=== PATIENT | female | born 1975 | race Caucasian/White ===

== ENCOUNTER → 2022-06-10 12:18 | Outpatient (CLI) | payer BC, SELFPAY ==
--- NOTE | ~2022-06-10 | MM_ITS ---
EXAMINATION: MM screening [facility] BI w slime HISTORY: Screening mammogram TECHNIQUE: Craniocaudal and mediolateral oblique 3-D tomosynthesis images were obtained and synthetic 2-D images were generated. CAD analysis was submitted and interpreted. COMPARISON: No prior mammogram is available for comparison at this institution. BREAST PARENCHYMAL COMPOSITION: There are scattered areas of fibroglandular density. FINDINGS: There is an approximately 5 mm possible mass in the upper mid left breast. There is a 4 mm circumscribed mass in the lateral subareolar area of the right breast (MLO tomosynthe sis 25/57). Bilateral diagnostic mammography is recommended, with ultrasound if required. IMPRESSION: 1. Possible bilateral breast masses 2. Bilateral diagnostic mammogram is recommended with ultrasound if required BI-RADS Category 0: Incomplete: Needs additional imaging evaluation. Reviewed, dictated and finalized at location A.
== END ==
PROVIDERS: PCP Obstetrics & Gynecology; Visit Provider Internal Medicine
DX: Z12.31 Encounter for screening mammogram for malignant neoplasm of breast (principal); R92.8 Other abnormal and inconclusive findings on diagnostic imaging of breast
CPT/HCPCS: 77063; 77067

== ENCOUNTER → 2022-07-04 07:36 | Outpatient (CLI) | payer BC, SELFPAY ==
--- NOTE | ~2022-07-04 | MMUS_ITS ---
EXAMINATION: MM diagnostic binta BI w slime, US breast BI limited HISTORY: Possible bilateral breast masses on screening mammogram TECHNIQUE: Additional 3-D tomosynthesis images of the breasts were performed and synthetic 2-D images were generated. CAD analysis was submitted and interpreted. High resolution limited bilateral breast ultrasound was performed. COMPARISON: 06/10/2022 FINDINGS: MAMMOGRAPHIC FINDINGS: Right breast: No definite persistent mass is identified with spot compression of the right breast. Left breast: There is a 10 mm oval, obscured, equal density mass with microlobulated margins in the m iddle third of the breast at the 12:00 location, 4 cm from the nipple. There is a 7 mm oval, obscured , equal density mass in the middle third of the lower inner breast at the 7:00 location, 7 cm from th e nipple ULTRASOUND: Right breast: There is a 5 mm cyst at the 12:00 location 1 cm from the nipple Left breast: There is a 10 mm x 5 mm oval, circumscribed, parallel, complex cystic and solid mass at the 12:00 location, 2 cm from the nipple with no posterior features or internal vascularity, probable clustered microcysts. There a 10 mm x 2 mm mass with similar sonographic features is seen at the 7:0 0 location, 4 cm from the nipple is an 8 mm x 3 mm oval, circumscribed, parallel, hypoechoic mass wit h no posterior features or internal vascularity at the 7:00 location, 4 cm from the nipple. There is a 5 mm x 3 mm mass with similar sonographic features at the 7:00 location, 6 cm from the nipple. IMPRESSION: 1. Probably benign left breast masses. 2. Recommend 6 month follow-up left diagnostic mammogram and ultrasound. BI-RADS category 3, probably benign findings. Reviewed, dictated and finalized at location A. IMPRESSION: 1. Probably benign left breast masses. 2. Recommend 6 month follow-up left diagnostic mammogram and ultrasound. BI-RADS category 3, probably benign findings.
== END ==
PROVIDERS: PCP Internal Medicine; Visit Provider Obstetrics & Gynecology
DX: R92.8 Other abnormal and inconclusive findings on diagnostic imaging of breast (principal)
CPT/HCPCS: 76642; 77062; 77066; G0279

== ENCOUNTER → 2023-01-23 08:12 | Outpatient (CLI) | payer BC, SELFPAY ==
--- NOTE | ~2023-01-23 | MMUS_ITS ---
EXAMINATION: MM diagnostic binta LT w slime, US breast LT limited HISTORY: Six-month follow-up for probably benign left breast masses TECHNIQUE: Additional 3-D tomosynthesis images of the left breast were performed and synthetic 2-D im ages were generated. CAD analysis was submitted and interpreted. High resolution limited left breast ultrasound was performed. COMPARISON: 07/04/2022, 06/10/2022 BREAST PARENCHYMAL COMPOSITION: There are scattered areas of fibroglandular density. FINDINGS: MAMMOGRAPHIC FINDINGS: There is a stable 10 mm oval, obscured, equal density mass with microlobulated margins in the middle third of the breast at the 12:00 location, 4 cm from the nipple. The previously described mass at the 7:00 location is not definitely identified. There has been no suspicious interval change. ULTRASOUND: There is a stable 9 mm x 5 mm oval, circumscribed, parallel, complex cystic and solid mass at the 12: 00 location, 5 cm from the nipple (previously labeled 2 cm from the nipple) with no posterior feature s or internal vascularity. A 4 mm x 2 mm mass with similar sonographic features at the 7:00 location, 4 cm from the nipple has decreased in size. There is a 3 mm oval, circumscribed, parallel, hypoechoi c mass with no posterior features or internal vascularity at the 12:00 location, 2 cm from the nipple . IMPRESSION: 1. Probably benign left breast masses. 2. Recommend 6 month follow-up bilateral diagnostic mammogram and left breast ultrasound. BI-RADS category 3, probably benign findings. Reviewed, dictated and finalized at location A. OUT PRESS OPERATOR IMPRESSION: 1. Probably benign left breast masses. 2. Recommend 6 month follow-up bilateral diagnostic mammogram and left breast u ltrasound. BI-RADS category 3, probably benign findings.
== END ==
PROVIDERS: PCP Internal Medicine; Visit Provider Obstetrics & Gynecology
DX: R92.8 Other abnormal and inconclusive findings on diagnostic imaging of breast (principal)
CPT/HCPCS: 76642; 77061; 77065; G0279

== ENCOUNTER 2023-04-30 14:27 | Outpatient (CLI) | payer BC, SELFPAY ==
[2023-04-30 14:53] LABS: Basophils Absolute Auto 0.1 K/mm3 (0.0-0.1); Basophils Percent Auto 0.6 % (0.2-1.2); Eosinophils Absolute Auto 0.4 K/mm3 (0-0.3); Eosinophils Percent Auto 4.5 % (0-4.4); Hematocrit 34.4 % (37.0-47.0); Hemoglobin 10.1 g/dL (12.0-15.0); Immature Granulocyte Absolute 0.04 K/mm3 (0.00-0.031); Immature Granulocyte Percent A 0.4 % (0-0.5); Lymphocytes Absolute Auto 1.39 K/mm3 (0.9-3.2); Lymphocytes Percent Auto 14.8 % (18.3-44.2); Mean Corpuscular HGB Conc 29.4 g/dl (32-36); Mean Corpuscular Hemoglobin 19.9 pg (26-34); Mean Corpuscular Volume 67.9 fl (80-100); Monocytes Absolute Auto 0.7 K/mm3 (0.1-0.6); Monocytes Percent Auto 7.2 % (2.6-8.5); Neutrophils Absolute Auto 6.8 K/mm3 (1.3-6.7); Neutrophils Percent Auto 72.5 % (45.5-73.1); Platelet Count Result 337 k/mm3 (150-375); Red Blood Count 5.07 M/mm3 (4.2-5.4); Red Cell Distribution Width 30.2 % (11.5-14.5); White Blood Count 9.4 K/mm3 (4.5-10.0)
[2023-04-30 15:01] LABS: Anisocytosis 1+; Microcytosis 1+ (NORMAL); Ovalocytes 1+; Platelet Estimate Adequate (Adequate); Schistocytes None Seen; Target Cells 1+
[2023-04-30 15:02] LABS: Poikilocytosis 2+
[2023-04-30 16:32] LABS: Iron 34 ug/dL (37-170)
[2023-04-30 16:42] LABS: Percent Iron Saturation 8 % (20-50)
[2023-04-30 17:08] LABS: Ferritin 9.36 ng/mL (6.24-137)
[2023-04-30 17:35] LABS: Alanine Aminotransferase 16 U/L (6-35); Albumin Level 4.9 g/dL (3.5-5.1); Alkaline Phosphatase 47 U/L (38-126); Anion Gap 9 mmol/L (8-16); Aspartate Amino Transferase 23 U/L (14-36); Bilirubin,Total 0.5 mg/dL (0.2-1.3); Blood Urea Nitrogen 8 mg/dL (7-17); Calcium 9.7 mg/dL (8.4-10.2); Carbon Dioxide 24 mmol/L (22-30); Chloride 104 mmol/L (98-107); Estimated Glomerular Filt Rate > 60; Glucose 87 mg/dL (65-110); Lactate Dehydrogenase 143 U/L (120-246); Potassium 3.9 mmol/L (3.4-5.0); Sodium 137 mmol/L (137-145)
[2023-04-30 18:50] LABS: Folic Acid > 20.0 ng/mL (2.76->20)
[2023-05-03 09:24] LABS: Methylmalonic Acid 81 nmol/L (87-318)
[2023-05-06 12:12] LABS: Soluble Transferrin Receptor 3.94 mg/L (0.76-1.76)
== END 2023-04-30 14:28 | disposition home or self-care (01) ==
LOC: ANHLAB 14:35
PROVIDERS: Nurse Practitioner Family; PCP Internal Medicine; Visit Provider Internal Medicine Hematology & Oncology
DX: D50.9 Iron deficiency anemia, unspecified (principal)
CPT/HCPCS: 36415; 80053; 82607; 82728; 82746; 83540; 83550; 83615; 83921; 84238; 85025

== ENCOUNTER 2023-08-05 07:53 | Outpatient (CLI) | payer BC, SELFPAY ==
--- NOTE | ~2023-08-05 | MMUS_ITS ---
EXAMINATION: MM diagnostic binta BI w slime, US breast BI complete HISTORY: Follow-up bilateral breast masses TECHNIQUE: Additional 3-D tomosynthesis images of the breasts were performed and synthetic 2-D images were generated. CAD analysis was submitted and interpreted. High resolution bilateral complete breas t ultrasound was performed. COMPARISON: Comparison to multiple prior studies sequentially, with oldest reviewed study dated 06/10. BREAST PARENCHYMAL COMPOSITION: Dense: The breasts are heterogeneously dense, which may obscure small masses FINDINGS: MAMMOGRAPHIC FINDINGS: There are no suspicious masses, calcifications or architectural distortion in either breast to sugges t malignancy. ULTRASOUND: Complete bilateral US of all 4 quadrants of the breasts and retroareolar region was reviewed. Right breast: At 9:00, 5 cm from the nipple, there is a cluster microcysts measuring 9 mm. At 10:00, 3 cm from the nipple, there is a 7 mm cyst. At 10-11:00, 4.5 cm from the nipple, there is a 7 mm cyst . There is also a 5 mm cyst at this location. Left breast: At 1:00, 4 cm from the nipple, there is a 4 mm cyst. There is an adjacent 7 mm cyst. At 5:00, 2.5 cm from the nipple there is a benign intramammary lymph node measuring 7 mm. At 11:00, 2 cm from the nipple there is a 6 mm cyst. IMPRESSION: 1. No evidence for malignancy in either breast. Benign findings. 2. Routine yearly screening mammogram and regular clinical breast examination are recommended. BI-RADS Category 2: Benign finding(s). Reviewed, dictated and finalized at location B. IMPRESSION: 1. No evidence for malignancy in either breast. Benign findings. 2. Routine yearly screening mammogram and regular clinical breast examination a re recommended. BI-RADS Category 2: Benign finding(s).
== END 2023-08-05 07:54 ==
PROVIDERS: PCP Internal Medicine; Visit Provider Obstetrics & Gynecology
DX: R92.8 Other abnormal and inconclusive findings on diagnostic imaging of breast (principal)
CPT/HCPCS: 76641; 77062; 77066; G0279

== ENCOUNTER 2023-12-19 07:56 | Outpatient (CLI) | payer BC, SELFPAY ==
--- NOTE | 2023-12-19 08:00 | ECG_ITS ---
Test Date: 2023-12-19 08:26:01 Measurements Intervals [place] Rate: 81 P: 59 SD: 130 QRS: 60 QRSD: 92 T: 23 QT: 355 QTc: 414 Interpretive Statements SINUS RHYTHM WITH SINUS ARRHYTHMIA MINIMAL Q WAVES- INFERIOR LEADS NONSPECIFIC ST-T WAVE ABNORMALITY- ANT/INF LEADS BASELINE ARTIFACT- I, II, AVR BORDERLINE ECG No previous ECG available for comparison Electronically Signed On 12-19-2023 08:32:25 CDT by Charles Posada D.O.
== END 2023-12-19 07:57 | disposition home or self-care (01) ==
LOC: ANHSURGERY 08:05
PROVIDERS: PCP Internal Medicine; Visit Provider Obstetrics & Gynecology
DX: N92.0 Excessive and frequent menstruation with regular cycle (principal); E78.5 Hyperlipidemia, unspecified; R94.31 Abnormal electrocardiogram [ECG] [EKG]
CPT/HCPCS: 36415; 86850; 86900; 86901; 93005

== ENCOUNTER 2023-12-25 00:33 | Day surgery (SDC) | payer BC, SELFPAY ==
[2023-12-16 12:46] VITALS: BMI 22.1
--- NOTE | 2023-12-16 12:57 | PC.NURSE ---
Report to the Outpatient Waiting Room, entrance under the green pavilion located off [facility], at time _1000_ on date _[id number]_. Planned Procedure Time: _1200_.? Time changes happen often and if your time is changed the preop area will call you the afternoon before. - You and your visitor will be asked to self-screen and do not enter if you have any COVID symptoms. Please call surgeon if you need to reschedule. - A mask is optional within the hospital at this time. Patients may have clear liquids (water, carbonated beverages, clear teas, apple juice) until 3 hours prior to surgery with a maximum of 20 ounces. - No food from midnight until time of surgery and no smoking Take only the following medications with a SIP of water on the morning of surgery: __Escitalopram DO NOT STOP ANY OF YOUR OTHER PRESCRIPTION MEDICATIONS PRIOR TO SURGERY EXCEPT THE FOLLOWING Medications to discontinue per physician __Vitamins Date to take last pojo___[id number]__ Please no make-up, nail faroese, hairspray, perfume, deodorant, or body powder the day of surgery.? No jewelry (including any body piercings) or valuables the day of surgery, leave them at home.? Please take a shower or bath the night before, or the morning of, surgery with an antibacterial soap.? Wear comfortable, loose fitting clothing.? - Jewelry must be removed prior to entering the operating room.? Rings and piercings that are not removed may be cut off. - The hospital will not accept responsibility for valuables.? - Please leave all valuables, including medications, at home the day of surgery. If you are going home after surgery, a licensed wagon driver salesperson must drive you home.? - NO public transportation without another adult if you receive anesthesia. - We recommend that an adult stay with you for 24 hours following discharge. - We also recommend that you do not drive, make important decision, drink alcoholic beverages, or take any drugs that were not prescribed by your health care provider for at least 24 hours after your discharge time. Follow any additional instructions given to you from your surgeon. Telephone instructions given to _Emma__and asked if any additional questions and then verbalized understanding. Patient advised to call surgeon office or pre surgery nurse liaison [phone] if any additional questions.
--- NOTE | 2023-12-23 07:34 | P.HP_ITS ---
H&P: HPI History of Present Illness Date/Time: 12/23/23 07:34 Chief Complaint: excessive vaginal bleeding and anemia Narrative: this is a 48-year-old 3 para 3 admitted for robotic total vaginal hysterectomy and bilateral salpingo-oophorectomy. This patient is at excessive heavy bleeding resulting in anemia. Will undergo hysterectomy bilateral salpingo-oophorectomy. Long discussion was undertaken conserving ovaries and changes that occur that she is definitive that she would like the ovaries removed. Risks and including not exclusive, aspiration bleeding, transfusion, perforation injury bowel, bladder, ureters, or other internal organs with need for open laparotomy she received the handout hysterectomy as well as the Arian she had all questions answered she asked to proceed PMFSH Social History Social History Smoking packs per day: 1 Smoking cigarettes per day: 20.0 Years smoked: 10 Smoking pack-years: 10.00 Smoking status: Former smoker Tobacco type: cigarettes Second hand tobacco smoke exposure: Yes Smoking end date: 12/16/03 Additional smoking assessment comments: 2020 smoked again for 3 months. Alcohol intake: current Living arrangements: with family Spiritual care concerns: No Meds Home Medications and Allergies Home Medications Medication Instructions Recorded Confirmed Type atomoxetine 100 mg capsule 100 mg PO DAILY 12/16/23 12/16/23 History atorvastatin 10 mg tablet 10 mg PO HS 12/16/23 12/16/23 History bisacodyl 5 mg tablet,delayed 5 mg PO HS 12/16/23 12/16/23 History release (Dulcolax (bisacodyl)) escitalopram oxalate 20 mg tablet 20 mg PO DAILY 12/16/23 12/16/23 History ferrous sulfate 325 mg (65 mg 325 mg PO BID 12/16/23 12/16/23 History iron) tablet (FeroSul) gabapentin 300 mg capsule 300 mg PO TID 12/16/23 12/16/23 History odhsxdwt-wndqxkn-qgft-lutein tablet 1 tablet PO DAILY 12/16/23 12/16/23 History multivitamin with minerals 1 tablet PO DAILY 12/16/23 12/16/23 History ubrogepant 50 mg tablet (Ubrelvy) 50 mg PO DAILY PRN migrane 12/16/23 12/16/23 History Allergies Allergy/AdvReac Type Severity Reaction Status Date / Time adhesive tape Allergy Mild Rash Verified 12/16/23 13:08 bee venom protein (honey bee) AdvReac Mild Anxiety Verified 12/16/23 13:08 [bees] Exam Const: General: cooperative, healthy appearing and comfortable Nutritional Appearance: average body habitus Orientation/consciousness: oriented to person, oriented to place and oriented to time HENMT: Head: normal to inspection Resp: Effort & Inspection: normal respiratory effort Cardio: Rate: regular rate Rhythm: regular rhythm Heart sounds: S1 normal heart sound present and S2 normal heart sound present GI: Inspection: normal to inspection : External Female Exam: normal external appearance Speculum Exam - Vagina: normal appearance of the vagina and vaginal bleeding Speculum Exam - Cervix: normal appearance of the cervix Bimanual exam- vagina & uterus: enlarged Bimanual Exam- Adnexa, other: normal adnexae Assessment and Plan Assessment and plan (1) Excessive bleeding: Code(s): R58 - Hemorrhage, not elsewhere classified Status: Acute (2) Iron deficiency anemia: Code(s): D50.9 - Iron deficiency anemia, unspecified Status: Acute Assessment and Plan: proceed with robotic total vaginal hysterectomy and bilateral salpingo- oophorectomy
[2023-12-25] VITALS (9 sets, daily range): BP systolic 96–124; BP diastolic 54–89; PULSE 55–82; RESP 12–20; TEMP 36.3–37.5; O2SAT 97–100
--- NOTE | 2023-12-25 05:35 | WPDHPUPDATE1 ---
History and Physical Update Update Date/Time: 12/25/23 05:35 History and Physical has been reviewed, including an updated exam of the patient. There are NO changes in the patient's condition. Risks, benefits, and alternatives have been discussed and questions answered. Patient agrees to proceed with procedure.
--- NOTE | 2023-12-25 10:32 | P.PNAN_ITS ---
Anes - Initial Pre Proc Eval Procedure: Operation Date: 12/25/23 12:00 Proposed Procedures p Robotic Assisted Total Vaginal Hysterectomy, Bilateral Salpingo Oophorectomy - Ernesto Pizarro MD Date/Time: 12/25/23 10:32 Surgeon: Ernesto Pizarro MD Pre Op Diagnosis: anemia,pelvic pain,excessive bleeding Patient Data Age: 48 Gender: F Height: 1.63 m Weight: 58.6 kg Allergies Allergy/AdvReac Type Severity Reaction Status Date / Time adhesive tape Allergy Mild Rash Verified 12/16/23 13:08 bee venom protein (honey bee) AdvReac Mild Anxiety Verified 12/16/23 13:08 [bees] Home Medications Medication Instructions Recorded Confirmed Type atomoxetine 100 mg capsule 100 mg PO DAILY 12/16/23 12/16/23 History atorvastatin 10 mg tablet 10 mg PO HS 12/16/23 12/16/23 History bisacodyl 5 mg tablet,delayed 5 mg PO HS 12/16/23 12/16/23 History release (Dulcolax (bisacodyl)) escitalopram oxalate 20 mg tablet 20 mg PO DAILY 12/16/23 12/16/23 History ferrous sulfate 325 mg (65 mg 325 mg PO BID 12/16/23 12/16/23 History iron) tablet (FeroSul) gabapentin 300 mg capsule 300 mg PO TID 12/16/23 12/16/23 History eonyeegs-fgpgsej-yrdt-lutein tablet 1 tablet PO DAILY 12/16/23 12/16/23 History multivitamin with minerals 1 tablet PO DAILY 12/16/23 12/16/23 History ubrogepant 50 mg tablet (Ubrelvy) 50 mg PO DAILY PRN migrane 12/16/23 12/16/23 History hydrocodone 5 mg-acetaminophen 325 1 tablet PO Q4H PRN pain #20 tabs 12/25/23 Rx mg tablet Patient hx anesthesia problems: none Family hx anesthesia problems: none Results Review: All pre-operative results and documents have been reviewed as part of the pre- operative evaluation. [facility] Past Medical History Medical History (Updated 12/25/23 @ 10:33 by Ernesto Griffin MD) Anxiety Hyperlipidemia Surgical History Surgical History (Updated 12/25/23 @ 10:33 by Ernesto Griffin MD) History of tubal ligation Social History Social History Smoking packs per day: 1 Smoking cigarettes per day: 20.0 Years smoked: 10 Smoking pack-years: 10.00 Smoking status: Former smoker Tobacco type: cigarettes Second hand tobacco smoke exposure: Yes Smoking end date: 12/16/03 Additional smoking assessment comments: 2020 smoked again for 3 months. Alcohol intake: current Living arrangements: with family Spiritual care concerns: No Anes - Eval Final PreProcedure Day of Procedure 12/25/23 10:32 Patient weight: normal Heart: regular rate and rhythm Lungs: clear to auscultation Airway: Mallampati scale class II Neurological: alert and oriented Last oral intake: >/= 8 hours ASA classification: II Emergent: no Anesthetic plan: proceed Anesthesia type and monitoring: general ETT and standard monitoring Results Review: All pre-operative results and documents have been reviewed as part of the pre- operative evaluation. Informed Consent: The patient's anesthetic plan and its attendant risks and benefits were discussed with the patient/family/POA. Questions were solicited and answers provided to the satisfaction of the patient/family/POA.
[2023-12-25] MEDS: ACETAMINOPHEN 500 MG TABLET 1000 MG PO ×3 (11:00→23:28)
[2023-12-25] MEDS: KETOROLAC 15 MG/ML VIAL (*BKC) IV PUSH (11:00)
[2023-12-25] MEDS: LACTATED RINGERS 1,000 ML 30 ML IV CONT ×2 (11:00→13:26)
[2023-12-25] MEDS: ceFAZolin 2 GM/D5W 50 ML 2 GM/50 ML BAG IVPB (11:56)
--- NOTE | 2023-12-25 12:00 | SUR.PREOP ---
Addendum entered by Thu Perrin RN 12/25/23 14:55: below documentation done in error. wrong patient Original Note: PT STATES HAS HAD CRUTCH TRAINING AT PAT VISIT BUT PLANS ON USING KNEE SCOOTER POST OP
[2023-12-25 12:04] LABS: BEDSIDEPREGUCG Negative (Negative)
--- NOTE | 2023-12-25 13:04 | P.OP_ITS ---
Procedure Note - Detailed Date of Procedure 12/25/23 Pre-op Diagnosis anemia,pelvic pain,excessive bleeding Post-op Diagnosis Same Procedure Performed Robotic total vaginal hysterectomy bilateral salpingo-oophorectomy Surgeon Ernesto Pizarro MD Anesthesia General Indications 48-year-old female with excessive heavy bleeding refractory therapy Findings fibroid uterus right fallopian tube surgically absent. Small cyst on the right Description of Procedure the patient was prepped draped normal sterile fashion placed dorsal lithotomy position. Under excellent general trach anesthesia weighted speculum placed in posterior fornix. Anterior lip of cervix grasped with single-tooth today uterus sounded to 10cm. Serial dilatation fragmented dilators performed followed by passage of 10. ANUP and the 3. 0.5 cold cup. The weighted speculum single- tooth bladder then drained of 16 Romansh catheter. The gloves were changed. A supraumbilical incision made. The Veress needle passed in the abdomen the a bdomen filled with CO2 gas. 15mmHg were filled and the 8mm trocar advanced in the abdomen. Downside visualized no injury seen. Patient placed in 18? Trendelenburg and right left lateral quadrant incisions made. 8Mm trocars advanced under direct visualization assuring no injury. A right upper quadrant incision made the 8mm trocar advanced under direct visualization assuring no injury. The robot was docked. Attention was turned to the trauma counsellor. The left round ligament grasped, burned, cut. Anteriorly a bladder flap was formed by sharply dissecting the peritoneum and reflecting the bladder caudally away from the cervix to the opposite round ligament which was clamped, burned, cut. Next the left infundibulopelvic structure was skeletonized serially clamping burning cutting and bringing this to level of previously cut round ligament. The tube was absent on the right except for small portion that was left on the tube the infundibulopelvic structure was skeletonized clamping burning cutting and bringing this to the level of the previously cut round ligament. The cardinal broad ligaments on the left were then serially skeletonized clamping burning cutting and hugging the cervix uterus until the uterine vessels could be seen on the left these were individually clamped, burned, cut. In similar fashion the cardinal broad ligaments on the right were serially skeletonized clamping burning cutting and bringing this down to the uterine vessels. These were then individually clamped, burned, cut. Excellent blanching was seen. A colpotomy incision was made in the cervix uterus ovaries tubes removed through the vagina. Vagina then closed continuous running 0V lock from lateral edge to lateral edge back to the midline. Irrigation undertaken to clear blood loss estimated [id number]. Robot was undocked the gas removed from the abdomen the incisions were then closed with 4-0 Monocryl and glue. The patient was awakened went recovery in satisfactory condition. All sponge, needle, instrument counts were correct. There were no immediate complications Estimated Blood Loss 25 Drains No Packing No Pathology Yes Complications No immediate complications Condition Stable Disposition PACU
--- NOTE | 2023-12-25 13:10 | P.DS_ITS ---
DS: Admitting Diagnosis Discharge Date 12/26/2023 Admitting Diagnosis excessive bleeding and anemia DS: Discharge Diagnosis Discharge Diagnosis (1) Excessive bleeding: Code(s): R58 - Hemorrhage, not elsewhere classified Status: Acute (2) Iron deficiency anemia: Code(s): D50.9 - Iron deficiency anemia, unspecified Status: Acute DS: Summary Hospital Course Reason for hospitalization: patient was admitted on 12/25/2023 for robotic total vaginectomy bilateral salpingo-oophorectomy Hospital Course: patient's hospital course unremarkable. She remained afebrile. She was up, voiding without difficulty, eating regular diet, ambulating, and generally without complaints. Time Spent with Patient Time attestation: Total time spent providing and/or coordinating discharge services: Exam Const: General: cooperative, healthy appearing and comfortable Orientation/consciousness: oriented to person, oriented to place and oriented to time HENMT: Head: normal to inspection Resp: Effort & Inspection: normal respiratory effort Cardio: Rate: regular rate Rhythm: regular rhythm Heart sounds: S1 emmie l heart sound present and S2 normal heart sound present GI: Inspection: normal to inspection and incision ( Wounds are clean dry and intact) DS: Data Data Completed and Pending Pending studies at discharge: Pending at discharge 12/25/23 12:38 Surgical [PTH] Routine Labs on day of discharge: Labs from last 24 hours 12/25/23 11:00 POC Urine HCG, Qual Negative Discharge Plan Discharge Patient Disposition: Home, Self-Care Stand Alone Forms: General Discharge Instructions Follow-up/Referrals: Ernesto Padron MD [Physician] - Discharge Medications: New hydrocodone-acetaminophen 5-325 mg tablet 1 tablet PO Q4H PRN (Reason: pain) Qty: 20 0RF No Action atorvastatin 10 mg tablet 10 mg PO HS ferrous sulfate [FeroSul] 325 mg (65 mg iron) tablet 325 mg PO BID gabapentin 300 mg capsule 300 mg PO TID Rx Instructions: says takes 600mg at hs only bisacodyl [Dulcolax (bisacodyl)] 5 mg Tablet,Delayed Release (Dr/Ec) 5 mg PO HS Skin - Special Formula Vit/Min Tablet 1 tablet PO DAILY Centrum Silver Ultra Women's Tablet 1 tablet PO DAILY escitalopram oxalate 20 mg tablet 20 mg PO DAILY atomoxetine 100 mg capsule 100 mg PO DAILY Ubrelvy 50 mg tablet 50 mg PO DAILY PRN (Reason: migrane)
[2023-12-25] MEDS: HYDROmorphone HCL INJ (*CRX) 1 MG/ML SYR 0.25 MG IV PUSH ×4 (13:35→14:04)
--- NOTE | 2023-12-25 14:45 | OBPPTRN ---
Patient transferred to post room #289 via bed. Support person present. Oriented to unit, room, information board, rooming in, admission packet and security measures. Patient verbalizes understanding.
[2023-12-25] MEDS: oxyCODONE HCL (*CRX) 5 MG TAB IR 10 MG PO ×2 (15:04→19:51)
[2023-12-25] MEDS: DEXTROSE 5%/LACTATED RINGERS 1,000 ML 125 ML IV CONT (15:06)
[2023-12-25] MEDS: KETOROLAC 30 MG/ML VIAL (*BKC) IV PUSH ×2 (17:14→23:29)
[2023-12-25] MEDS: DOCUSATE SODIUM 100 MG CAPSULE PO (17:14)
[2023-12-25] MEDS: SIMETHICONE 80 MG TAB.CHEW PO (17:14)
[2023-12-25] MEDS: ESTRADIOL 7 DAY 0.05 MG PATCH TRANSDERM (17:15)
[2023-12-25] MEDS: diphenhydrAMINE HCl INJ 50 MG/ML VIAL 25 MG IV PUSH (17:55)
--- NOTE | 2023-12-25 19:21 | PC.NURSE ---
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 PT a recipient of such instructions and no barriers to learning identified at this time. Instructions per one to one discussion, and demonstrations. PT verbalized understanding of such care.
[2023-12-26] MEDS: oxyCODONE HCL (*CRX) 5 MG TAB IR PO (04:23)
[2023-12-26] MEDS: KETOROLAC 30 MG/ML VIAL (*BKC) IV PUSH (05:48)
[2023-12-26] MEDS: ACETAMINOPHEN 500 MG TABLET 1000 MG PO (05:48)
--- NOTE | 2023-12-26 07:01 | PM.GYNPNOP ---
DRAFTER ELECTROMECHANICAL - A/P Postoperative Procedures: Procedures Operation Date: 12/25/23 12:00 Actual Procedure Side Surgeon p Robotic Assisted Total Vaginal Hysterectomy, Bilateral Salpingo Oophorectomy Bilateral Ernesto Pizarro MD Postoperative day: 1 Postoperative status: doing well Postoperative plan: routine post-op care, see orders, ambulate, advance diet, voiding trials and discharge Time Spent With Patient Time: Total time spent is greater than 50% in coordination of care (as documented) at patient's floor/unit and/or counseling patient: Time with patient: less than 15 minutes DRAFTER ELECTROMECHANICAL- PN:Subj Post-Op Subjective Date/time seen: 12/26/23 07:01 Subjective: patient reports feeling better, patient has no complaints, patient desires discharge, pain is well controlled and patient is tolerating oral intake Exam Const: General: cooperative, healthy appearing and comfortable HENMT: Head: normal to inspection Resp: Effort & Inspection: normal respiratory effort Cardio: Rate: regular rate Rhythm: regular rhythm Heart sounds: S1 normal heart sound present and S2 normal heart sound present GI: Inspection: normal to inspection and incision (cdi) DRAFTER ELECTROMECHANICAL - PN: Obj Data Vital Signs Vital Signs: Vital Signs - 24 hr 12/25/23 11:00 12/25/23 13:26 12/25/23 13:40 Temperature 97.4 F L 97.8 F Pulse Rate 67 82 61 Respiratory Rate 18 14 15 Blood Pressure 109/73 124/75 124/82 Pulse Oximetry 100 100 100 Oxygen Delivery Room Air Simple Face Mask Simple Face Mask Oxygen Flow Rate 8 8 12/25/23 13:55 12/25/23 14:10 12/25/23 14:25 Temperature Pulse Rate 59 L 57 L 55 L Respiratory Rate 14 14 12 Blood Pressure 109/89 101/54 L 97/69 L Pulse Oximetry 100 98 99 Oxygen Delivery Room Air Room Air Room Air Oxygen Flow Rate 12/25/23 14:35 12/25/23 14:55 12/25/23 20:00 Temperature 97.8 F 98 F 99.5 F Pulse Rate 57 L 57 L 70 Respiratory Rate 12 14 20 Blood Pressure 105/58 L 97/61 L 96/62 L Pulse Oximetry 98 100 97 Oxygen Delivery Room Air Oxygen Flow Rate 12/25/23 20:00 Temperature Pulse Rate 70 Respiratory Rate 18 Blood Pressure Pulse Oximetry 97 Oxygen Delivery Room Air Oxygen Flow Rate Intake/Output Intake/Output: Intake & Output 12/23/23 12/24/23 12/25/23 12/26/23 23:59 23:59 23:59 23:59 Intake Total 1890 Output Total 2350 Balance -460 Meds/Results Medications: Active Medications Generic Name Dose Route Start Last Admin Trade Name Freq PRN Reason Stop Dose Admin Acetaminophen 1,000 mg 12/25/23 18:00 12/26/23 05:48 Acetaminophen 500 Mg Tablet PO 1,000 mg Q6HR CARLOS Administration Diphenhydramine HCl 25 mg 12/25/23 17:42 12/25/23 17:55 Diphenhydramine Hcl Inj 50 Mg/Ml Vial IV PUSH 25 mg Q4H PRN Administration Itching Docusate Sodium 100 mg 12/25/23 17:00 12/25/23 17:14 Docusate Sodium 100 Mg Capsule PO 100 mg BID CARLOS Administration Enoxaparin Sodium 40 mg 12/26/23 09:00 Enoxaparin 40 Mg/0.4 Ml Syringe SUB-Q DAILY CARLOS Estradiol 0.05 mg 12/25/23 15:00 12/25/23 17:15 Estradiol 7 Day 0.05 Mg Patch TRANSDERM 0.05 mg Q7D CARLOS Administration Dextrose/Lactated Ringer's 1,000 mls @ 125 mls/hr 12/25/23 14:36 12/25/23 22:00 Dextrose 5%/Lactated Ringers IV CONT Not Given .Q8H CARLOS Ibuprofen 600 mg 12/26/23 12:00 Ibuprofen 600 Mg Tablet PO Q6HR CARLOS Naloxone HCl 0.1 mg 12/25/23 14:36 Naloxone Hcl 0.4 Mg/Ml Vial IV PUSH Q2M PRN Respiratory rate less than 10 Ondansetron HCl 4 mg 12/25/23 14:36 Ondansetron Inj 4 Mg/2 Ml Vial IV PUSH Q6H PRN Nausea And Vomiting Oxycodone HCl 5 mg 12/25/23 14:36 12/26/23 04:23 Oxycodone Hcl (*Crx) 5 Mg Tab Ir PO 5 mg Q4H PRN Administration Pain Rated 4-6 Oxycodone HCl 10 mg 12/25/23 14:36 12/25/23 19:51 Oxycodone Hcl (*Crx) 5 Mg Tab Ir PO 10 mg Q6H PRN Administration Pain Rated 7-10 Simethicone 80 mg 12/25/23 17:00 12/25/23 17:14 Simethicone 80 Mg Tab.Chew PO 80 mg TIDWM CARLOS Administration Labs Labs: Laboratory Results - last 24 hr 12/25/23 11:00 POC Urine HCG, Qual Negative
[2023-12-26 07:40] VITALS: BP 95/56; PULSE 87; RESP 16; TEMP 36.9; O2SAT 99
--- NOTE | 2023-12-26 08:04 | WPDANESPN ---
Anes - Prog Note Post-Op Date/Time: 12/26/23 08:04 Cardiovascular status: normal Respiratory status: normal Airway patency: baseline Mental status: baseline Post-Op hydration status: normal Vital Signs: Last Vital Signs Temp 37.5 C 12/25/23 20:00 Pulse 70 12/25/23 20:00 Resp 18 12/25/23 20:00 BP 96/62 L 12/25/23 20:00 Pulse Ox 97 12/25/23 20:00 O2 Del Method Room Air 12/25/23 20:00 O2 Flow Rate 8 12/25/23 13:40 Pain Score (VAS): 6 I/O: Intake & Output 12/25/23 12/26/23 12/26/23 23:59 07:59 15:59 Intake Total 1540 Output Total 1900 Balance -360 12/25/23 11:00 POC Urine HCG, Qual Negative Post-procedural complaints: none Patient Feedback: Patient satisfied with anesthetic care.
[2023-12-26] MEDS: SIMETHICONE 80 MG TAB.CHEW PO (08:24)
[2023-12-26] MEDS: oxyCODONE HCL (*CRX) 5 MG TAB IR 10 MG PO (08:24)
[2023-12-26] MEDS: DOCUSATE SODIUM 100 MG CAPSULE PO (08:24)
[2023-12-26] MEDS: ENOXAPARIN 40 MG/0.4 ML SYRINGE SUB-Q (08:25)
== END 2023-12-26 09:20 | disposition home or self-care (01) ==
LOC: ANHSURGERY 09:45 → ANHOB2 14:39
PROVIDERS: PCP Internal Medicine; Visit Provider Obstetrics & Gynecology
PROC: (CPT 58552; principal; 2023-12-25 12:00)
DX: D50.9 Iron deficiency anemia, unspecified (principal); R10.2 Pelvic and perineal pain; N93.9 Abnormal uterine and vaginal bleeding, unspecified; N88.8 Other specified noninflammatory disorders of cervix uteri; N80.03 Adenomyosis of the uterus; D27.0 Benign neoplasm of right ovary; D25.0 Submucous leiomyoma of uterus; D25.1 Intramural leiomyoma of uterus; D25.2 Subserosal leiomyoma of uterus; F41.9 Anxiety disorder, unspecified; E78.5 Hyperlipidemia, unspecified; Z87.891 Personal history of nicotine dependence
CPT/HCPCS: 58552; S2900; 88305; 88307; 99199; A9270; J0690; J1100; J1171; J1200; J1650; J1885; J2003; J2250; J2405; J2704; J3010; J7030; J7120; J7121

== ENCOUNTER 2024-04-22 17:57 | Emergency (ER) | payer BC, SELFPAY ==
--- NOTE | ~2024-04-22 | CT_ITS ---
EXAMINATION: CT cervical spine wo con DATE: 04/23/2024 01:04 INDICATION: Left sided neck pain radiating to the arm. TECHNIQUE: Computed tomography (CT) of the cervical spine was performed without intravenous contrast. Automated exposure control and iterative reconstruction technique were employed. The dose-length pro duct was 152.72 mGy-cm. COMPARISON: None FINDINGS: There is kyphosis of cervical spine. There is 9 degrees dextrocurvature of cervical spine a nd 13 degrees levoscoliosis of cervicothoracic spine. Vertebral body heights are normal. There is mil dly decreased disc height at C4-C5, C5-C6, and C6-C7. The following disc levels are specifically disc ussed: C2-C3: There is no uncovertebral joint osteoarthritis. There is moderate right and mild left facet monika int osteoarthritis. There is no neural foraminal stenosis. There is no central canal stenosis. C3-C4: There is no uncovertebral joint osteoarthritis. There is mild bilateral facet joint osteoarthr itis. There is no neural foraminal stenosis. There is no central canal stenosis. C4-C5: There is no uncovertebral joint osteoarthritis. There is severe left facet joint osteoarthriti s. There is mild left neural foraminal stenosis. There is no central canal stenosis. C5-C6: There is moderate bilateral uncovertebral joint osteoarthritis. There is mild bilateral facet joint osteoarthritis. There is mild bilateral neural foraminal stenosis. There is mild central canal stenosis. C6-C7: There is no uncovertebral joint osteoarthritis. There is no facet joint osteoarthritis. There is no neural foraminal stenosis. There is mild central canal stenosis. C7-T1: There is no uncovertebral joint osteoarthritis. There is severe bilateral facet joint osteoart hritis. There is mild bilateral neural foraminal stenosis. There is no central canal stenosis. IMPRESSION: 1. No fracture. 2. Mild cervical spondylosis. 3. Scoliosis. Reviewed, dictated and finalized at location A. IAL EDUCATION SUPERVISOR
--- OUTSIDE RECORDS SUMMARY | 2024-04-22 18:00 | XMS_ITS | Clinical Summary ---
Author Organization [facility] Sterling Garcialen Address [address] [place] [address] Care Team Providers Care Solid Waste Truck Driver Name Role Phone Morales Mullen MD Primary Care Provider [phone] Allergies No known active allergies Medications atorvastatin (LIPITOR) 10 mg tablet Take 10 mg by mouth daily. 04/26/2023 Active escitalopram oxalate (LEXAPRO) 20 mg tablet Take 20 mg by mouth daily. 04/25/2023 Active FeroSuL 325 mg (65 mg iron) tablet Take 1 Tablet by mouth 2 times daily. 04/11/2023 Active gabapentin (NEURONTIN) 300 mg capsule Take 300 mg by mouth 3 times daily. 06/24/2023 Active atomoxetine (STRATTERA) 100 mg Capsule Take 100 mg by mouth daily. 07/25/2023 Active Active Problems Problem Noted Date Diagnosed Date GABRIELA (iron deficiency anemia) 04/30/2023 Encounters Date Type Department Care Team Description 04/21/2024 External Device Data [facility] ABSTRACTION Provider, Abstract 04/07/2024 External Device Data [facility] ABSTRACTION Provider, Abstract 03/11/2024 External Device Data [facility] ABSTRACTION Provider, Abstract from Last 3 Months Family History Medical History Relation Name Comments No Known Problems Child 1 No Known Problems Child 2 No Known Problems Child 3 Lung Cancer Mother No Known Problems Sister Relation Name Status Comments Child 1 Alive Child 2 Alive Child 3 Alive Father Mother Alive Sister Alive Social History Tobacco Use Types Packs/Day Years Used Date Smoking Tobacco: Former Cigarettes 0.9 15.1 0 02/18/2020 - 03/21/2022 Smokeless Tobacco: Never Tobacco Cessation:Counseling Given: Not Answered Alcohol Use Standard Drinks/Week Comments Yes 0 (1 standard drink = 0.6 oz pur e alcohol) Socially Comments Unknown Sex and Gender Information Value Date Recorded Sex Assigned at Female 12/08/2023 1:34 PM CDT 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 Gender Identity Female 12/08/2023 1:34 PM CDT Sexual Orientation Straight 12/08/2023 1: 34 PM CDT Last Filed Vital Signs Vital Sign Reading Time Taken Comments Blood Pressure 119/87 12/05/2023 11:06 AM CDT Pulse 72 12/05/2023 11:06 AM CDT Temperature 36.7 C (98 F) 12/05/2023 11:06 AM CDT Respiratory Rate 14 12/05/2023 11:06 AM CDT Oxygen Saturation 98% 12/05/2023 11:06 AM CDT Inhaled Oxygen Concentration - - Weight 62 kg (136 lb 9.6 oz) 12/05/2023 11:06 AM CDT Height 162.6 cm (5' 4 ) 04/30/2023 1:39 PM CDT Body Mass Index 23.45 04/30/2023 1:39 PM CDT Plan of Treatment Upcoming Encounters Date Type Department Care Team (Late st Contact Info) Description 06/04/2024 10:15 AM CDT Office Visit [facility] Oncology and Hematology - [place] [address] [place] [address] [facility] [address] [place] [address] Panfilo Cerna MD [address] [facility] [address] [place] [address] Health Maintenance Due Date Last Done Comments DTAP/TDAP/TD VACCINES (1 - Tdap) 10/31/1995 HEPATITIS B VACCINES (1 of 3 - 19+ 3-dose series) 10/31/1995 CERVICAL CANCER SCREENING 2006 BREAST CANCER SCREENING 2016 COLORECTAL SCREENING 2021 Colorectal Cancer Screening 2021 FIT-DNA Q 3 years 2021 FIT/FOBT Q 1 year 2021 Flex Sig/CT Colonography Q 5 years 2021 INFLUENZA VACCINE (#1) 2023 02/24/2023 COVID-19 Vaccine ( season) 10/19/202309/2020, 04/27/2020 Insurance BC[employer] BLUE ACCESS/TRUE BLUE PPO Care Teams Solid Waste Truck Driver Relationship Specialty Start Date End Date Morales Mullen MD [address] [place] [address] PCP - General Internal Medicine 04/23/23
--- OUTSIDE RECORDS SUMMARY | 2024-04-22 18:00 | XMS_ITS | Encounter Summary ---
Author Organization [facility] Address [address] [place] [address] Care Team Providers Care Caretaker Name Role Phone Morales Mullen MD Primary Care Provider [phone] Encounter Details Date Type Department Care Team (Late st Contact Info) Description 04/21/2024 External Device Data [facility] ABSTRACTION Provider, Abstract NO ADDRESS ON FILE Social History Tobacco Use Types Packs/Day Years Used Date Smoking Tobacco: Former Cigarettes 0.9 15.1 0 02/18/2020 - 03/21/2022 Smokeless Tobacco: Never Alcohol Use Standard Drinks/Week Comments Yes 0 (1 standard drink = 0.6 oz pur e alcohol) Socially Comments Unknown Sex and Gender Information Value Date Recorded Sex Assigned at Female 12/08/2023 1:34 PM CDT 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 [address] [place] [address] documented as of this encounter Visit Diagnoses Not on filedocumented in this encounter Care Teams Caretaker Relationship Specialty Start Date End Date Morales Mullen MD [address] [place] [address] PCP - General Internal Medicine 04/23/23 documented as of this encounter
[2024-04-22 18:28] VITALS: BP 102/71; PULSE 71; RESP 18; TEMP 36.2; O2SAT 100
--- OUTSIDE RECORDS SUMMARY | 2024-04-23 00:03 | XMS_ITS | Encounter Summary ---
Author Organization [facility] Address 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 Gender Identity Female 12/08/2023 1:34 PM CDT Sexual Orientation Straight 12/08/2023 1: 34 PM CDT documented as of this encounter Plan of Treatment Upcoming Encounters Date Type Department Care Team (Late st Contact Info) Description 06/04/2024 10:15 AM CDT Office Visit [facility] Oncology and Hematology - [place] [address] [facility] [address] [place] [address] Panfilo Cerna MD [address] [facility] [address] [place] [address] documented as of this encounter Visit Diagnoses Not on filedocumented in this encounter Care Teams Disability Case Manager Relationship Specialty Start Date End Date Morales Mullen MD [address] [place] [address] PCP - General Internal Medicine 04/23/23 documented as of this encounter
--- OUTSIDE RECORDS SUMMARY | 2024-04-23 00:03 | XMS_ITS | Clinical Summary ---
Author Organization [facility] Sterling Garcialen Address [address] [place] [address] Care Team Providers Care Justowriter Operator Name Role Phone Morales Mullen MD Primary Care Provider [phone] Allergies No known active allergies Medications atorvastatin [...] PM CDT Legal Sex Female 8:05 AM DISPLAY ASSOCIATE Gender Identity Female 12/08/2023 1:34 PM CDT [...] Description 06/04/2024 10:15 AM CDT Office Visit [facility] Oncology and Hematology - [place] [address] [place] [address] [facility] [address] [place] [address] Panfilo Cerna MD [address] [facility] [address] [place] [address] Health Maintenance Due Date Last [...] BCBS BLUE ACCESS/TRUE BLUE PPO Care Teams Justowriter Operator Relationship Specialty Start Date End Date Morales Mullen MD [address] [place] [address] PCP - General Internal Medicine 04/23/23
[2024-04-23] MEDS: ACETAMINOPHEN 500 MG TABLET 1000 MG PO (00:46)
[2024-04-23] MEDS: diazePAM INJ (*CRX) 10 MG/2 ML SYRINGE 5 MG IM (00:46)
[2024-04-23] MEDS: KETOROLAC 30 MG/ML VIAL (*BKC) IM (00:46)
--- NOTE | 2024-04-23 01:20 | ED_ITS ---
HPI - Neck Pain/Injury General Chief Complaint: Neck Pain/Injury Stated Complaint: L NECK PAIN X WEEKS Time Seen by Provider: 04/22/24 23:39 Source: patient Mode of arrival: ambulatory Limitations: no limitations History of Present Illness HPI Narrative: This is a 48-year-old female that presents to the emergency department for neck pain. Ongoing over the last several weeks. No recent injuries. Reports the pain radiates into her left arm. Reports muscle spasming. Denies weakness or numbness. Related Data Home Medications ?Medication ?Instructions ?Recorded ?Confirmed ?Last Taken ?Type atomoxetine 100 mg capsule 100 mg PO DAILY 12/16/23 12/16/23 Unknown History atorvastatin 10 mg tablet 10 mg PO HS 12/16/23 12/16/23 Unknown History bisacodyl 5 mg tablet,delayed 5 mg PO HS 12/16/23 12/16/23 Unknown History release (Dulcolax (bisacodyl)) escitalopram oxalate 20 mg tablet 20 mg PO DAILY 12/16/23 12/25/23 12/25/23 06:00 History ferrous sulfate 325 mg (65 mg 325 mg PO BID 12/16/23 12/16/23 Unknown History iron) tablet (FeroSul) gabapentin 300 mg capsule 300 mg PO TID 12/16/23 12/16/23 Unknown History qpfmwbvv-ddvyipg-wxgp-lutein tablet 1 tablet PO DAILY 12/16/23 12/25/23 12/22/23 History multivitamin with minerals 1 tablet PO DAILY 12/16/23 12/25/23 12/22/23 History ubrogepant 50 mg tablet (Ubrelvy) 50 mg PO DAILY PRN migrane 12/16/23 12/16/23 Unknown History Allergies Allergy/AdvReac Type Severity Reaction Status Date / Time adhesive tape Allergy Mild Rash Verified 04/22/24 17:58 bee venom protein (honey AdvReac Mild Anxiety Verified 04/22/24 17:58 bee) (bees) Review of Systems Review of Systems: CONSTITUTIONAL: Denies fever MUSCULOSKELETAL: Reports myalgia. NEUROLOGIC: Denies numbness, or weakness. All systems reviewed & are unremarkable except as noted in HPI and below PMFSH Past Medical History Medical History (Updated 04/23/24 @ 02:19 by Roopa Joe PA-C) Anxiety Hyperlipidemia Surgical History Surgical History (Updated 12/25/23 @ 10:33 by Ernesto Griffin MD) History of tubal ligation Social History Social History Smoking packs per day: 1 Smoking cigarettes per day: 20.0 Years smoked: 10 Smoking pack-years: 10.00 Smoking status: Former smoker Tobacco type: cigarettes Second hand tobacco smoke exposure: Yes Smoking end date: 12/16/03 Additional smoking assessment comments: 2020 smoked again for 3 months. Alcohol intake: current Living arrangements: with family Spiritual care concerns: No Exam Narrative: GENERAL: Well-appearing, well-nourished, and in no acute distress. HEAD: Normocephalic, atraumatic. EYES: EOMI. ENT: Nares clear, no rhinorrhea or epistaxis. Mucous membranes moist. Oropharynx without tonsillar hypertrophy exudate or other lesions. NECK: Supple. No adenopathy or masses. Tender to palpation of left trapezius musculature CHEST: Clear to auscultation. No respiratory distress. No wheezes rales or rhonchi HEART: Regular rate and rhythm. No murmur heard. Normal peripheral pulses. EXTREMITIES: Normal range of motion. No edema. Strength equal in bilateral upper extremities (5/5) SKIN: Warm, dry, no rash. NEURO: No focal deficits. Alert and oriented x3. PSYCH: Normal mood and affect Course Course Emergency Course: patient updated on her workup and agrees with plan of care Vital Signs Vital signs: Vital Signs Temperature 97.2 F L 04/22/24 18:28 Pulse Rate 71 04/22/24 18:28 Respiratory Rate 18 04/22/24 18:28 Blood Pressure 102/71 04/22/24 18:28 Pulse Oximetry 100 04/22/24 18:28 Temperature 97.2 F L 04/22/24 18:28 Pulse Rate 71 04/22/24 18:28 Respiratory Rate 18 04/22/24 18:28 Blood Pressure 102/71 04/22/24 18:28 Pulse Oximetry 100 04/22/24 18:28 MDM - Neck Pain/Injury MDM Narrative Medical decision making narrative: Patient presents the emergency department for left-sided neck pain radiating into the arm. No known injury or trauma. Patient is neurovascularly intact. CT cervical spine without concerning findings. Patient instructed on [id number]-[id number] medications, will be prescribed muscle relaxers as needed for pain. She is to follow up with primary provider. She was given warnings to return to the ER Differential Diagnosis Differential diagnosis: Likely cervical radiculopathy, cervical spondylosis and strain of neck muscle Imaging Data Radiologist's impression: CT cervical spine: No acute fracture subluxation. No prevertebral soft tissue swelling. Upper lungs unremarkable Critical Care Time Critical Care Time Critical Care Time: No Discharge Plan Discharge Clinical Impression: Muscle spasm, Cervical radiculopathy Patient Disposition: Home, Self-Care Condition: Improved Instructions: Cervical Radiculopathy (ED) Additional Instructions: Return to the ER if you experience fever, redness and swelling of your arm, weakness, numbness, or any other symptoms that are concerning to you Rest, use ice/heat, take anti-inflammatories (Aleve, Ibuprofen, Naproxen, etc) or Tylenol as needed for pain as well as muscle relaxer (Flexeril) as needed for pain. Muscle relaxers can make you drowsy, do not drive if you take this Follow up with your primary care doctor Patient Language: Upper Sorbian Prescriptions: New cyclobenzaprine 10 mg tablet 10 mg PO TID PRN (Reason: muscle spasm) Qty: 14 0RF No Action atorvastatin 10 mg tablet 10 mg PO HS ferrous sulfate [FeroSul] 325 mg (65 mg iron) tablet 325 mg PO BID gabapentin 300 mg capsule 300 mg PO TID Rx Instructions: says takes 600mg at hs only bisacodyl [Dulcolax (bisacodyl)] 5 mg Tablet,Delayed Release (Dr/Ec) 5 mg PO HS Skin - Special Formula Vit/Min Tablet 1 tablet PO DAILY Centrum Silver Ultra Women's Tablet 1 tablet PO DAILY escitalopram oxalate 20 mg tablet 20 mg PO DAILY atomoxetine 100 mg capsule 100 mg PO DAILY Ubrelvy 50 mg tablet 50 mg PO DAILY PRN (Reason: migrane) hydrocodone-acetaminophen 5-325 mg tablet 1 tablet PO Q4H PRN (Reason: pain) Qty: 20 0RF Follow-up/Referrals: Paz,Morales Morales MD [Primary Care Provider] -
== END 2024-04-23 03:00 | disposition home or self-care (01) ==
PROVIDERS: Emergency Provider Physician Assistant; PCP Internal Medicine
DX: M54.12 Radiculopathy, cervical region (principal); M62.838 Other muscle spasm; E78.5 Hyperlipidemia, unspecified; F41.9 Anxiety disorder, unspecified; Z87.891 Personal history of nicotine dependence
CPT/HCPCS: 72125; 96372; 99284; A9270; J1885; J3360

== ENCOUNTER 2024-06-01 09:42 | Outpatient (CLI) | payer BC, SELFPAY ==
[2024-06-01 10:00] LABS: Hematocrit 38.8 % (37.0-47.0); Hemoglobin 12.9 g/dL (12.0-15.0); Mean Corpuscular HGB Conc 33.2 g/dl (32-36); Mean Corpuscular Hemoglobin 30.6 pg (26-34); Mean Corpuscular Volume 92.2 fl (80-100); Mean Platelet Volume 9.8 fl (7.4-10.4); Platelet Count Result 315 k/mm3 (150-375); Red Blood Count 4.21 M/mm3 (4.2-5.4); Red Cell Distribution Width 13.4 % (11.5-14.5); White Blood Count 15.8 K/mm3 (4.5-10.0)
--- OUTSIDE RECORDS SUMMARY | 2024-06-01 10:24 | XMS_ITS | Clinical Summary ---
Author Organization [facility] Address [address] [place] [address] Care Team Providers Care State'S Attorney Name Role Phone Morales Mullen MD Primary Care Provider [phone] Allergies No known active allergies Medications atorvastatin [...] Encounters Date Type Department Care Team Description 05/05/2024 External Device Data [facility] ABSTRACTION Provider, Abstract 04/28/2024 External Device Data [facility] ABSTRACTION Provider, Abstract 04/27/2024 External Device Data [facility] ABSTRACTION Provider, Abstract 04/24/2024 External Device Data [facility] ABSTRACTION Provider, Abstract 04/24/2024 External Device Data [facility] ABSTRACTION Provider, Abstract 04/21/2024 External Device Data [facility] ABSTRACTION Provider, [...] PM CDT 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 [address] [place] [address] Panfilo Cerna MD [address] [facility] [address] [place] [address] Health Maintenance Due Date Last Done Comments DTAP/TDAP/TD VACCINES (1 - Tdap) 10/31/1995 HEPATITIS B VACCINES (1 of 3 - 19+ 3-dose series) 10/31/1995 HPV/Cotest (21-29) 1997 CERVICAL CANCER SCREENING 2006 HPV/Cotest (30-65) 2006 PAP SMEAR 2006 BREAST CANCER SCREENING 2016 COLORECTAL SCREENING 2021 Colorectal Cancer Screening 2021 FIT-DNA Q 3 years 2021 FIT/FOBT Q 1 year 2021 Flex Sig/CT Colonography Q 5 years 2021 INFLUENZA VACCINE (#1) 2023 02/24/2023 COVID-19 Vaccine ( season) 10/19/202309/2020, 04/27/2020 Insurance [facility] BLUE ACCESS/TRUE BLUE PPO Care Teams State'S Attorney Relationship Specialty Start Date End Date Morales Mullen MD [address] [place] [phone] PCP - General Internal Medicine 04/23/23
--- OUTSIDE RECORDS SUMMARY | 2024-06-01 10:24 | XMS_ITS | Clinical Summary ---
Author Organization [facility] [employer] Address [address] [place] [address] Care Team Providers Care Architecture Drafter Name Role Phone Morales Mullen MD Primary Care Provider [phone] Source Comments [facility] [employer],non-owned Affiliates and Associated Physician Practices is amultiple site organization consisting of ambulatory clinics and hospital sitesin [place], [place], [place] and [place]. This disclosure is being madepursuant to the Care Everywhere program and may not contain all information available regarding this patient. Last updated 17.[facility] [employer] Allergies No known active allergies Medications * Be aware that medications may not be up to date on this document. Alwaysverify current medications with the patient. methocarbamol (Robaxin) 750 MG tablet Take 1 (one) tablet by mouth every 6 hours as needed for Muscle Spasms 30 tablet 04/29/2024 Active ketorolac (Toradol) 10 MG tablet Take 1 (one) tablet by mouth every 6 hours as needed for Pain 60 tablet 04/29/2024 Active Encounters Date Type Department Care Team Description 04/29/2024 1:32 PM CDT - 04/29/2024 11:49 PM CDT Emergency [facility] [address] [place] [address] Vasyl Powell MD Cervical disc herniation (Primary Dx); Neurosensory deficit; Weakness; Foot drop, left Discharge Disposition: Home or Self Care 04/29/2024 Travel from Last 3 Months Social History Tobacco Use Types Packs/Day Years Used Date Smoking Tobacco: Never Assessed Comments No Sex and Gender Information Value Date Recorded Sex Assigned at Not on file 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 Gender Identity Not on file Sexual Orientation Not on file Last Filed Vital Signs Vital Sign Reading Time Taken Comments Blood Pressure 100/71 04/29/2024 11:30 PM CDT Pulse 65 04/29/2024 10:00 PM CDT Temperature 36.2 C (97.2 F) 04/29/2024 1:31 PM CDT Respiratory Rate 16 04/29/2024 10:00 PM CDT Oxygen Saturation 98% 04/29/2024 11:30 PM CDT Inhaled Oxygen Concentration - - Weight 59 kg (130 lb) 04/29/2024 9:58 AM CDT Height 160 cm (5' 3 ) 04/29/2024 9:58 AM CDT Body Mass Index 23.03 04/29/2024 9:58 AM CDT Plan of Treatment Upcoming Encounters Date Type Department Care Team (Late st Contact Info) Description 11/15/2024 11:00 AM CDT Office Visit [facility] - Neurology [address] [facility], [facility] [place] [id number] Laura Lassiter, DO [address] [place] [address] Health Maintenance Due Date Last Done Comments COLOGUARD (AGES 45-75) - COL ON CA SCREENING 1976 COLON MONITORING 1976 COLONOSCOPY - COLON CA SCREENING 1976 CT COLONOGRAPHY - COLON CA SCREENING 1976 Colorectal Cancer Screening 1976 FIT - COLON CA SCREENING 1976 FLEX SIG - COLON CA SCREENING 1976 LIPID TESTING 1976 MAMMOGRAM 1976 PAP SMEAR 1976 HIV SCREENING 10/31/1991 HEPATITIS C SCREENING 10/26/1994 DTAP/TDAP/TD VACCINES (1 - Tdap) 10/31/1995 HEPATITIS B VACCINE (1 of 3 - 19+ 3-dose series) 10/31/1995 COVID-19 VACCINE (3 2023-2 5 season) 2023 05/25/2020, 04/27/2020 DEPRESSION SCREENING 02/18/2024 INFLUENZA VACCINE (Season Ended) 2024 ZOSTER VACCINE (1 of 2) 2026 HIB VACCINE Aged Out No longer eligi ble based on patient's age to complete this topic HPV VACCINE Aged Out No longer eligi ble based on patient's age to complete this topic MENINGOCOCCAL (Group B) VACCINE SHARED DECISION-MAKING Aged Out No longer eligible based on patient's age to complete this topic MENINGOCOCCAL GROUPS A/C/Y/W VACCINE Aged Out No longer eligible b ased on patient's age to complete this topic PNEUMOCOCCAL VACCINE Aged Out No long er eligible based on patient's age to complete this topic Procedures Procedure Name Priority Date/Time Associated Diagnosis Comments CT ANGIO BRAIN AND NECK STAT 04/29/2024 11:57 AM CDT Neurosensory deficit Weakness COMPREHENSIVE METABOLIC PANEL STAT 04/29/2024 10:36 AM CDT CBC W AUTO DIFFERENTIAL STAT 04/29/2024 10:36 AM CDT from Last 3 Months Results * CT Angio Brain And Neck (04/29/2024 11:57 AM CDT) Anatomical Region Laterality Modality Head Computed Tomogra phy 04/29/2024 1:40 PM CDT Impressions 04/29/2024 2:00 PM CDT IMPRESSION: 1. No acute intracranial hemorrhage. 2. No large arterial occlusions or significant stenoses identified in the head or neck. > Interpreting Provider: Figueroa Mondragon MD on 04/29/2024 2:00 PM Narrative 04/29/2024 2:00 PM CDT PROCEDURE: CT ANGIO BRAIN AND NECK, DATE/TIME OF EXAM: 04/29/2024 11:57 AM, LOCATION [facility] INDICATION: R29.90: Neurosensory deficit R53.1: Weakness ADDITIONAL CLINICAL INFORMATION: Ordering Provider Reason For Exam: ro stroke vs other Technologist Note: Additional: EXAMINATION: 1. Computed tomographic (CT) angiography of the head without and with contrast 2. CT angiography of the neck with contrast TECHNIQUE: CT of the head was performed without contrast according to standard protocol. Then CT angiography of the head and neck was obtained after the uneventful administration of intravenous contrast. Three dimensional postprocessing was performed by the technologist and sent to the workstation for review. CONTRAST: IOPAMIDOL 76 % IV SOLN:75 mL COMPARISON: No prior study is available for comparison at the time of this dictation. FINDINGS: Non-angiographic findings: No acute intracranial hemorrhage or intra- or extra-axial fluid collections are identified. The ventricles are of normal size, shape, and morphology. The basal cisterns are patent. No mass effect or midline shift is seen. The dia-white matter differentiation is normal. The visualized portions of the orbits, paranasal sinuses, and mastoids appear normal. No acute calvarial fracture is identified. No soft tissue abnormalities are identified in the neck. Angiographic findings: Neck: The visible aortic arch appears normal. There is a common origin of the innominate and left common carotid arteries from the aortic arch. The innominate artery and both subclavian arteries appear normal. The right common and internal carotid arteries as well as the right carotid bifurcation are patent. The left common and internal carotid arteries as well as the left carotid bifurcation are patent. The cervical vertebral arteries are patent. Head: The distal internal carotid arteries are patent. The anterior cerebral arteries are patent. The middle cerebral arteries are patent. The posterior cerebral arteries are patent. The distal vertebral arteries are patent. The basilar artery is patent patent. No aneurysms, spot sign, or signs of a high flow vascular malformation are identified. Procedure Note Figueroa Mondragon MD - 04/29/2024 PROCEDURE: CT ANGIO BRAIN AND NECK, DATE/TIME OF EXAM: 04/29/2024 11:57 AM, LOCATION [facility] INDICATION: R29.90: Neurosensory deficit R53.1: Weakness ADDITIONAL CLINICAL INFORMATION: Ordering Provider Reason For Exam: ro stroke vs other Technologist Note: Additional: EXAMINATION: 1. Computed tomographic (CT) angiography of the head without and with contrast 2. CT angiography of the neck with contrast TECHNIQUE: CT of the head was performed without contrast according to standard protocol. Then CT angiography of the head and neck was obtained after the uneventful administration of intravenous contrast. Three dimensional postprocessing was performed by the technologist and sent to the workstation for review. CONTRAST: IOPAMIDOL 76 % IV SOLN:75 mL COMPARISON: No prior study is available for comparison at the time ofthis dictation. FINDINGS: Non-angiographic findings: No acute intracranial hemorrhage or intra- or extra-axial fluidcollections are identified. The ventricles are of normal size, shape, andmorphology. The basal cisterns are patent. No mass effect or midline shift is seen.The dia-white matter differentiation is normal. The visualized portions of the orbits, paranasal sinuses, and mastoids appear normal. No acute calvarial fracture is identified. No soft tissue abnormalities are identified in the neck. Angiographic findings: Neck: The visible aortic arch appears normal. There is a common origin of the innominate and left common carotid arteries from the aortic arch. The innominate artery and both subclavian arteries appear normal. The right common and internal carotid arteries as well as the right carotid bifurcation are patent. The left common and internal carotid arteries as well as the left carotid bifurcation are patent. The cervical vertebral arteries are patent. Head: The distal internal carotid arteries are patent. The anterior cerebral arteries are patent. The middle cerebral arteries are patent. The posterior cerebral arteries are patent. The distal vertebral arteriesare patent. The basilar artery is patent patent. No aneurysms, spot sign, or signs of a high flow vascular malformation are identified. IMPRESSION: 1. No acute intracranial hemorrhage. 2. No large arterial occlusions or significant stenoses identified inthe head or neck. > Interpreting Provider: Figueroa Mondragon MD on 04/29/2024 2:00 PM us Maylin Dorsey PA-C CT ORDERABLES Final Resul t * (ABNORMAL) CBC W AUTO DIFFERENTIAL (04/29/2024 10:36 AM CDT) WBC 10.3 4.0 - 10.7 x10E9/L 04/29/2024 10:47 AM [facility] RBC Count 4.23 3.90 - 5.20 x10E12/L 04/29/2024 10:47 AM [facility] Hemoglobin 12.6 11.9 - 15.8 g/dL 04/29/2024 10:47 AM [facility] Hematocrit 37.1 34.8 - 46.1 % 04/29/2024 10:47 AM [facility] MCV 87.7 80.0 - 98.0 fL 04/29/2024 10:47 AM [facility] MCH 29.8 26.7 - 33.6 pg 04/29/2024 10:47 AM [facility] MCHC 34.0 31.7 - 36.3 g/dL 04/29/2024 10:47 AM [facility] RDW-CV 12.6 11.3 - 14.8 % 04/29/2024 10:47 AM [facility] Platelet Count 224 150 - 420 x10E9/L 04/29/2024 10:47 AM [facility] MPV 10.4 7.8 - 11.4 fL 04/29/2024 10:47 AM [facility] Neutrophil % 76.1(H) 41.0 - 74.0 % 04/29/2024 10:47 AM [facility] Lymphocyte % 11.9(L) 17.0 - 47.0 % 04/29/2024 10:47 AM [facility] Monocyte % 4.9 3.0 - 11.0 % 04/29/2024 10:47 AM [facility] Eosinophil % 6.0 0.0 - 7.0 % 04/29/2024 10:47 AM [facility] Basophil % 0.8 0.0 - 1.6 % 04/29/2024 10:47 AM [facility] Immature Granulocytes % 0.3 0.0 - 1.0 % 04/29/2024 10:47 AM [facility] Neutrophil Absolute 7.81(H) 1.60 - 7.50 x10E9/L 04/29/2024 10:47 AM [facility] Lymphocyte Absolute 1.22 1.00 - 4.40 x10E9/L 04/29/2024 10:47 AM [facility] Monocyte Absolute 0.50 0.15 - 1.00 x10E9/L 04/29/2024 10:47 AM [facility] Eosinophil Absolute 0.61(H) 0.00 - 0.60 x10E9/L 04/29/2024 10:47 AM [facility] Basophil Absolute 0.08 0.00 - 0.13 x10E9/L 04/29/2024 10:47 AM [facility] Blood BLOOD SPECIMEN / Unknown Venipuncture / Unknown 04/29/2024 10:36 AM CDT 04/29/2024 10:43 AM CDT us Maylin Dorsey PA-C LAB - HEMATOLOGY ORDERABLES Final Result Performing Organization Address City/State/[facility] Co de Phone Number [facility] [address] [place] [address], [facility] [phone] * COMPREHENSIVE METABOLIC PANEL (04/29/2024 10:36 AM CDT) BUN 10 7 - 26 mg/dL 04/29/2024 11:07 AM [facility] Creatinine 0.60 0.56 - 0.96 mg/dL 04/29/2024 11:07 AM [facility] Sodium 141 136 - 145 mmol/L 04/29/2024 11:07 AM [facility] Potassium 4.4 3.5 - 4.5 mmol/L 04/29/2024 11:07 AM [facility] Chloride 107 98 - 107 mmol/L 04/29/2024 11:07 AM [facility] CO2 27 22 - 29 mmol/L 04/29/2024 11:07 AM [facility] Glucose 86 70 - 99 mg/dL 04/29/2024 11:07 AM [facility] Calcium 9.0 8.4 - 10.2 mg/dL 04/29/2024 11:07 AM [facility] Protein Total 6.7 6.0 - 8.3 g/dL 04/29/2024 11:07 AM [facility] Albumin 3.8 3.4 - 5.0 g/dL 04/29/2024 11:07 AM [facility] Bilirubin Total 0.2 0.2 - 1.2 mg/dL 04/29/2024 11:07 AM [facility] Alkaline Phosphatase 47 40 - 150 U/L 04/29/2024 11:07 AM [facility] ALT 23 5 - 55 U/L 04/29/2024 11:07 AM [facility] AST 24 5 - 34 U/L 04/29/2024 11:07 AM [facility] Anion Gap 7 6 - 16 04/29/2024 11:07 AM [facility] BUN/Creatinine Ratio 17 7 - 23 04/29/2024 11:07 AM [facility] Osmolality Calculated 290 275 - 295 mOsm/kg 04/29/2024 11:07 AM [facility] Albumin/Globulin Ratio 1.3 1.1 - 2.3 04/29/2024 11:07 AM [facility] eGFR by CKD-EPI >90 >=90 mL/min/1.7 3 m2 04/29/2024 11:07 AM [facility] Blood BLOOD SPECIMEN / Unknown Venipuncture / Unknown 04/29/2024 10:36 AM CDT 04/29/2024 10:43 AM [facility] Maylin Dorsey PA-C LAB - CHEMISTRY ORDERABLES Final Result [facility] [address] [place] [address], [facility] [phone] from Last 3 Months Insurance SELF PAY NO INSURANCE Member Subscriber Plan / Payer (Ef fective for All Dates) Name:Rasta Lyons Member ID:Not on file Relation to Subscriber:Not on file Name:RASTA LYONS Subscriber ID:Not on file (Home) Address: [address] [place] [phone] Payer ID:Not on file Group ID:Not on file Type:Self Pay Address: [place], [place] Care Teams Architecture Drafter Relationship Specialty Start Date End Date Morales Mullen MD [address] [facility] [address] [place] [address] PCP - General Internal Medicine 04/29/24
[2024-06-01 10:53] LABS: Iron 97 ug/dL (37-170)
[2024-06-01 11:04] LABS: Percent Iron Saturation 25 % (20-50)
== END 2024-06-01 09:43 | disposition home or self-care (01) ==
LOC: ANHLAB 09:44
PROVIDERS: PCP Internal Medicine; Visit Provider Internal Medicine Hematology & Oncology
DX: D50.9 Iron deficiency anemia, unspecified (principal)
CPT/HCPCS: 36415; 82728; 83540; 83550; 85027

== ENCOUNTER 2024-11-17 14:50 | Outpatient (CLI) | payer BC, SELFPAY ==
--- NOTE | ~2024-11-17 | MM_ITS ---
EXAMINATION: [facility] HISTORY: Screening TECHNIQUE: Craniocaudal and mediolateral oblique 3-D tomosynthesis images were obtained and synthetic 2-D images were generated. CAD analysis was submitted and interpreted. COMPARISON: Comparison to multiple prior studies sequentially, with oldest reviewed study dated 06/10/2022. BREAST PARENCHYMAL COMPOSITION: Not dense: There are scattered areas of fibroglandular density. FINDINGS: There is no evidence of suspicious mass, calcification, or architectural distortion to suggest malignancy in either breast. There has been no suspicious interval change. IMPRESSION: 1. No mammographic evidence of malignancy. 2. Recommend routine screening mammography in one year. BI-RADS Category 1: Negative Reviewed, dictated and finalized at location B.
== END 2024-11-17 14:51 | disposition home or self-care (01) ==
LOC: MICIMG 14:51
PROVIDERS: PCP Internal Medicine; Visit Provider Obstetrics & Gynecology
DX: Z12.31 Encounter for screening mammogram for malignant neoplasm of breast (principal)
CPT/HCPCS: 77063; 77067